=== PATIENT | female | born 2000 | race Caucasian/White ===

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

== ENCOUNTER 2021-07-28 14:45 | Observation (INO) | payer OTHER ==
[~2021-07-28] VITALS: Ht 172.7 cm; Wt 49.9 kg
[2021-07-28 15:21] LABS: HEMOGLOBIN 14.5 gm/dl (12.3-15.3); RED BLOOD COUNT 4.68 M/UL (4.00-5.10); WHITE BLOOD COUNT 27.1 K/UL (4.5-11.0)
[2021-07-28 15:52] LABS: BUN/CREATININE RATIO 17 (0-10)
--- NOTE | 2021-07-29 08:54 | NUR ---
PATIENT STATED SHE IS HAVING SHARP/CRAMPING PAIN IN HER LOWER ABDOMEN THAT IS RADIATING TO HER CHEST. PATIENT RATED PAIN 8 OUT OF 10. SEE EMAR. NO SIGNS OF DISTRESS NOTED, VS WNL. WILL NOTIFY PROVIDER WHEN ROUNDING AT 0900.
[2021-07-29 10:10] LABS: HEMOGLOBIN 13.1 gm/dl (12.3-15.3)
[2021-07-29 10:12] LABS: RED BLOOD COUNT 4.18 M/UL (4.00-5.10); WHITE BLOOD COUNT 18.4 K/UL (4.5-11.0)
--- NOTE | 2021-07-29 11:31 | NUR ---
1040 ROUNDED ON PATIENT AFTER COMING FROM OR. PATIENT SITTING IN BED, STATED SHE IS STILL HAVING PAIN AT THIS TIME, REQUEST PAIN MEDICATION THAT SHE HAD EARLIER, INFORMED PATIENT IT WAS NOT TIME FOR MEDICATION YET. PATIENT VERBALIZED UNDERSTANDING AND HEATING PADS PLACED ON LOWER ABDOMEN.
--- NOTE | 2021-07-29 11:33 | NUR ---
1120 DR. UMANA ON FLOOR AT THIS TIME, STATED TO CALL HOSPITALIST FOR GI CONSULT. 1127 DR. SENDY WOODRUFF MD STATED HE WOULD HAVE DR. JOLLEY CALL FLOOR. 1128 DR. KASHMIR SALGADO MD UPDATED ON PATIENTS PLAN OF CARE, CONSTANT ABDOMINAL PAIN, MED HX, AND CT RESULTS/LABS. NO NEW ORDERS AT THIS TIME. STATED HE WOULD ROUND LATER THIS EVENING ON PATIENT.
--- NOTE | 2021-07-29 12:36 | NUR ---
PATIENT REQUESTED TO SHOWER AT THIS TIME, PATIENT REQUESTED IV IN LEFT FOREARM BE TAKEN OUT DUE TO IT HURTING. TOLD PATIENT I COULD FLUSH IV TO MAKE SURE IT IS STILL PATENT. PATIENT STATED SHE RATHER HAVE THE IV TAKEN OUT. IV D'C AT HTIS TIME. SITE WNL AND BANDAIGE APPLIED. IV IN R AC COVERED WITH PLASTIC, PATIENT GETTING READY TO SHOWER AT THIS TIME.
--- NOTE | 2021-07-29 13:21 | NUR ---
PATIENT SITTING UP IN BED, STATED SHE MAY TRY TO NAP.
--- NOTE | 2021-07-29 14:02 | NUR ---
PATIENT REQUESTING MEDICATION FOR NAUSEA AT THIS TIME.
--- NOTE | 2021-07-29 14:09 | NUR ---
DR. UAMNA NOTIFIED OF PATIENTS REQUEST FOR NASUEA MEDICATION, MD STATED TO GIVE PATIENT 4MG OF ZOFRAN IV PUSH Q4HRS PRN. STATED TO CONTACT [facility] FOR A CONSULT AND TO ASK THEM TO SEE PATIENT IN THE MORNING. ORDER RBV.
--- NOTE | 2021-07-29 14:20 | NUR ---
1419 DR. OWENS NOTIFIED OF CONSULT TO BE SEEN BY [facility], UPDATED ON PLAN OF CARE AND MEDICATIONS GIVEN. MD STATED TO CONTINUE PLAN OF CARE WITH NO NEW ORDERS AT THIS TIME, STATED IF PATIENT CAN TOLERATE CLEAR LIQUIDS SHE MAY HAVE THEM.
--- NOTE | 2021-07-29 15:26 | NUR ---
PATIENT SITTING UP IN BED, STATED HER HEAD IS HURTING. PATIENT ENROURAGED TO SLEEP DUE TO NOT SLEEPING ANY LAST NIGHT. CURTAINS CLOSED AND PATIENT STATED SHE WAS GOING TO TRY TO SLEEP.
--- NOTE | 2021-07-29 16:12 | NUR ---
1540 DR. UMANA STATED TO GIVE PATIENT 30MG OF TORDOL IV PUSH NOW. 1GM TYLENOL Q6H, AND TRAMADOL 50MG Q4HPRN. D'C NORCO AT THIS TIME. ORDER RBV.
--- NOTE | 2021-07-29 16:53 | NUR ---
DR. MARLOW ON FLOOR AT THIS TIME, IN ROOM TO SPEAK WITH PATIENT AND TO DO ASSESSMENT. NO NEW ORDERS AT THIS TIME.
--- NOTE | 2021-07-29 17:01 | NUR ---
CALLED TWICE TO GIVE REPORT TO NURSE ON [facility], ON THIRD CALL NURSE, TERRY, ANSWERED. NURSE STATED THAT SHE WOULD CALL BACK TO GET REPORT ON PATIENT.
--- NOTE | 2021-07-29 17:34 | NUR ---
1705 REPORT GIVEN TO RUBIO ROJAS. PATIENT MOVED VIA WHEEL CHAIR TO ROOM ON [facility]. NO QUESTIONS FROM ONCOMING NURSE.
[2021-08-01 18:09] LABS: CHLAMYDIA TRACHOMATIS, NAA Negative (Negative); NEISSERIA GONORRHOEAE, NAA Equivocal (Negative)
== END 2021-07-29 19:51 | disposition left against medical advice (07) ==
LOC: ER1 14:45 → CDU 20:44 → OB 21:40 → MED SURG 4 07-29 17:17
PROVIDERS: Emergency Medicine; ADMIT Obstetrics & Gynecology
DX: N73.9 Female pelvic inflammatory disease, unspecified (principal); I88.0 Nonspecific mesenteric lymphadenitis; K76.0 Fatty (change of) liver, not elsewhere classified; F17.200 Nicotine dependence, unspecified, uncomplicated; Z20.822 Contact with and (suspected) exposure to COVID-19
CPT/HCPCS: 80053; 80307; 81001; 83605; 83690; 84703; 85025; 87040; 87070; 87077; 87086; 87186; 87205; 87210; 96374; 96375; 96376; 99285; G0378; J0696; J1885; J1956; J2270; J2405; J2543; J7030; Q9967; U0002

== ENCOUNTER 2021-10-21 11:04 | Emergency (ER) | payer OTHER ==
[2021-10-21] MEDS ORDERED: BACTROBAN OINT22 GM EXT (12:04)
[2021-10-21] MEDS ORDERED: IBUPROFEN600 MG PO (12:04)
[2021-10-21] MEDS ORDERED: CLEOCIN HCL300 MG PO (12:04)
== END 2021-10-21 12:30 | disposition home or self-care (01) ==
LOC: ER1 11:04
DX: N75.1 Abscess of Bartholin's gland (principal); F17.210 Nicotine dependence, cigarettes, uncomplicated; Z88.8 Allergy status to other drugs, medicaments and biological substances
CPT/HCPCS: 56420; 99282

== ENCOUNTER 2021-10-27 11:40 | Emergency (ER) | payer OTHER ==
[~2021-10-27 11:40] MED LIST: BACTROBAN OINT22 GM EXT; CLEOCIN HCL300 MG PO; IBUPROFEN600 MG PO
[2021-10-27] MEDS ORDERED: VALACYCLOVIR1000 MG PO (12:36)
== END 2021-10-27 12:45 | disposition home or self-care (01) ==
LOC: ER1 11:40
DX: N89.9 Noninflammatory disorder of vagina, unspecified (principal); F17.200 Nicotine dependence, unspecified, uncomplicated
CPT/HCPCS: 99283

== ENCOUNTER 2021-10-28 15:34 | Emergency (ER) | payer OTHER ==
[~2021-10-28 15:34] MED LIST changes: +VALACYCLOVIR1000 MG PO
[2021-10-28 16:16] LABS: HEMOGLOBIN 14.2 gm/dl (12.3-15.3); RED BLOOD COUNT 4.69 M/UL (4.00-5.10); WHITE BLOOD COUNT 8.3 K/UL (4.5-11.0)
[2021-10-28 16:35] LABS: BUN/CREATININE RATIO 16 (0-10)
[2021-10-31 21:08] LABS: CHLAMYDIA TRACHOMATIS, NAA Negative (Negative); NEISSERIA GONORRHOEAE, NAA Negative (Negative)
== END 2021-10-28 19:34 | disposition left against medical advice (07) ==
LOC: ER1 15:34
PROVIDERS: Physician Assistant
DX: R07.89 Other chest pain (principal); Z88.5 Allergy status to narcotic agent
CPT/HCPCS: 71045; 80053; 80307; 81001; 83690; 84703; 85025; 85652; 86140; 87086; 93005; 99283

== ENCOUNTER 2021-11-23 09:50 | Emergency (ER) | payer OTHER ==
[2021-11-23 11:03] LABS: HEMOGLOBIN 13.1 gm/dl (12.3-15.3); RED BLOOD COUNT 4.4 M/UL (4.00-5.10); WHITE BLOOD COUNT 5.6 K/UL (4.5-11.0)
[2021-11-23 11:13] LABS: BUN/CREATININE RATIO 16 (0-10)
[2021-11-23] MEDS ORDERED: AMOXICILLIN500 M1 PO (14:28)
== END 2021-11-23 14:30 | disposition left against medical advice (07) ==
LOC: ER1 09:50
PROVIDERS: Emergency Medicine
DX: H66.91 Otitis media, unspecified, right ear (principal); F17.210 Nicotine dependence, cigarettes, uncomplicated
CPT/HCPCS: 70450; 80048; 84703; 85025; 85652; 86140; 99284

== ENCOUNTER 2022-03-24 17:07 | Emergency (ER) | payer MEDICAID ==
[~2022-03-24 17:07] MED LIST changes: +AMOXICILLIN500 M1 PO
[2022-03-24 21:47] LABS: HEMOGLOBIN 14.6 gm/dl (12.3-15.3); RED BLOOD COUNT 4.66 M/UL (4.00-5.10); WHITE BLOOD COUNT 13.2 K/UL (4.5-11.0)
[2022-03-24 22:29] LABS: BUN/CREATININE RATIO 13 (0-10)
== END 2022-03-24 20:36 | disposition left against medical advice (07) ==
LOC: ER1 17:07
PROVIDERS: Family Medicine
DX: R55 Syncope and collapse (principal); S09.90XA Unspecified injury of head, initial encounter; F17.200 Nicotine dependence, unspecified, uncomplicated; W19.XXXA Unspecified fall, initial encounter; Y99.0 Civilian activity done for income or pay
CPT/HCPCS: 80053; 84703; 85025; 99283